=== PATIENT | female | born 1970 | race Two or more races ===

== ENCOUNTER → 2016-09-12 | Outpatient (CLI) | payer OTHER ==
[~2016-09-12] MED LIST: AMOXICILLIN PO; CLARITHROMYCIN500 MG PO; OMEPRAZOLE40 M1 PO
--- NOTE | ~2016-09-12 | OR ---
Unit #: [id number] #: [id number] Patient: HERBIE TOLEDO [id number] [address] [address] [id number] O MR#: [id number] NAME: HERBIE TOLEDO. ROOM: Date of Procedure: 09/12/2016 Admission Date: 09/12/2016 Surgeon: Kieran Villarreal M.D. : 1970 Attending Physician: Kieran Villarreal M.D. Referring Physician: Kieran Villarreal M.D. Primary Care Physician: Onelia Retana M.D. OPERATIVE REPORT PROCEDURE PERFORMED Esophagogastroduodenoscopy with biopsies. INDICATIONS FOR PROCEDURE The patient with chronic epigastric pain, history of GERD, and H pylori gastritis. MEDICATIONS Monitored anesthesia. POSTOPERATIVE FINDINGS 1. Chronic appearing gastritis, biopsies taken. 2. Large duodenal ulcers appears to be healing. 3. Normal esophagus. PLAN Continue PPI therapy. Follow up on biopsies. Treat for H. pylori if positive. DESCRIPTION OF PROCEDURE The patient was explained of the procedure, risks, and benefits along with the risks and benefits of anesthesia. She was brought to the endoscopy room. Propofol anesthesia was given. Bite block was placed. The scope was passed down the mouth into the esophagus, stomach, duodenum, and distal duodenum. Findings as described. Biopsies taken. Gently, I pulled it out of the patient's mouth. She tolerated it well. Dictated by... Frannie Tolentino/juwan TD: 09/12/2016 21:24 JOB #: [id number] Unit #: [id number] #: [id number] Patient: HERBIE TOLEDO OPERATIVE REPORT X Kieran Villarreal MD X PROCEDURE OPERATIVE NOTE
--- NOTE | ~2016-09-12 | US6 ---
[facility] A Service of [facility] & [facility] RADIOLOGY TEXT RESULTS PATIENT: HERBIE TOLEDO LOCATION: [facility] : [birth year] UNIT #: [id number] AGE: [address]: Kieran Villarreal MD SEX: F ORDER DR: [id number] [facility] [address] [place], [place] [address] [id number] O MR#: [id number] Acc #: [id number] NAME: HERBIE TOLEDO : 1970 SEX: F STUDY DATE/TIME: 09/12/2016 7:54 UNIT: [facility] ROOM: STUDY DESCRIPTION: US Abdominal Limited Attending Physician: Kieran Villarreal M.D. Referring Physician: Kieran Villarreal M.D. Ordering Physician: Kieran Villarreal M.D. Primary Care Physician: Onelia Retana M.D. MEDICAL IMAGING REPORT This report is preliminary unless electronic signature is present EXAM Right upper quadrant ultrasound, 09/12 INDICATION Upper abdominal pain over the last 2-3 weeks. FINDINGS Sonographic evaluation is performed of the right upper quadrant in multiple planes. Comparison is made with CT abdomen from 01/01/2006. Pancreas is normal. Liver parenchyma is homogeneous with no focal mass. Gallbladder is normal. No gallstones are seen. Right kidney is morphologically normal and nonobstructed. Liver parenchyma is mildly echogenic suggesting a mild degree of fatty infiltration. No free fluid. Common duct is normal at 2.0 mm internal diameter. IMPRESSION Mild hepatic steatosis, otherwise normal ultrasound of the right upper quadrant. Dictated by... Cam Tomas Jr., M.D. THIS IS AN ELECTRONICALLY VERIFIED REPORT Cam Tomas Jr., M.D. at 09/12/2016 4:17 PM JORGE/chelly TD: 09/12/2016 09:02 JOB #: [id number] MEDICAL IMAGING REPORT COPY
== END | disposition home or self-care (01) ==
LOC: CWCC 07:33
DX: R10.10 Upper abdominal pain, unspecified (principal); K76.0 Fatty (change of) liver, not elsewhere classified
CPT/HCPCS: 76705